=== PATIENT | male | born 1955 | race Two or more races ===

== ENCOUNTER 2025-02-07 13:00 | Emergency (ER) | payer OTHER, SELFPAY ==
[2025-02-07 13:02] VITALS: BMI 33.0
[2025-02-07 13:09] VITALS: BP 157/79; PULSE 68; RESP 16; TEMP 36.4; O2SAT 95
--- NOTE | 2025-02-07 13:42 | PC.NURSE ---
Pt was advised to come with me to registration.Pt refused and stated when will my labs be done? I advised pt that lab will be with him shortly to draw blood. Pt Stated I'm leaving there is to many people sitting around doing nothing. Pt took his Spinal fluid and left.
--- NOTE | 2025-02-07 13:43 | EDNOTE_ITS ---
ED General RME/HPI General Chief complaint: General Adult/Misc Complain Stated complaint: SENT BY [facility] FOR LAB WORK Time Seen by Provider: 02/07/25 13:27 Arrival date/time: 02/07/25 13:00 RME / HPI RME / HPI narrative: 69-year-old male patient was sent to us by neurologist for request regarding blood work. Patient's been having headache for several months, went to PCP today/neurologist and lumbar tap was done patient is here for laboratory workup. Currently patient is complaining of back pain and headache severity mild. Denies any other complaints. Patient is ambulatory Related Data Allergies Allergy/AdvReac Type Severity Reaction Status Date / Time No Known Allergies Allergy Verified 02/07/25 13:04 Review of Systems Review of Systems Narrative Review of Systems: Review of system reviewed and within normal limits except mentioned in HPI ED Exam Narrative Physical exam: VITAL SIGNS: Reviewed. GENERAL APPEARANCE: Alert and interactive, follows commands, no acute distress, HEAD AND FACE: Non-traumatic. ENT: PERRL, pink conjunctivitis, eyelid no trauma, Mucous membrane moist. NECK: Supple, nontender, no nuchal rigidity. CHEST: No tenderness, no crepitus, no paradoxical movement, no retractions. LUNGS: Clear, well ventilated, symmetric, no rales, no wheezing, no ronchi, no stridor, good breath sounds bilaterally. HEART: Regular rate, regular rhythm, no murmur, no gallops. ABDOMEN: Soft, positive bowel sounds, nondistended, no guarding, nontender, no rebound, no masses, RECTAL: Deferred. GENITAL: Deferred. NEUROLOGICAL: Gross motor function intact sensory function intact, Appropriate for age. MUSCULOSKELETAL: low back nontender, full range of motion. EXTREMITIES: Nontender, full range of motion. SKIN: Color pink, dry, no rash, no lacerations, no abrasions, no contusions. LYMPHATICS: Deferred. Course Quality Measures none Orders Category Date Time Status Angiotensin Convert Enz, CSF* Routine Lab 02/07/25 14:15 Received CSF Culture and Gram Stain Stat Lab 02/07/25 14:15 Results Cell Count w Diff, CSF Routine Lab 02/07/25 14:15 Completed Coccid Serology, CF CSF (UCD)* Routine Lab 02/07/25 14:15 Received Glucose,CSF Routine Lab 02/07/25 14:15 Completed IgG Synthesis Rate/Index, CSF* Stat Lab 02/07/25 14:15 Stop Req IgG, Serum* Stat Lab 02/07/25 14:15 Stop Req Misc Send Out* Routine Lab 02/07/25 14:15 Received Misc Send Out* Stat Lab 02/07/25 14:15 Received Myelin Basic Protein, CSF* Routine Lab 02/07/25 14:15 Received Oligoclonal Bands, CSF* Routine Lab 02/07/25 14:15 Received Protein Total,CSF Routine Lab 02/07/25 14:15 Completed VDRL, CSF Qual* Stat Lab 02/07/25 14:15 Stop Req Vital Signs Vital signs: Vital Signs Temperature 97.5 F 02/07/25 13:09 Pulse Rate 68 02/07/25 13:09 Respiratory Rate 16 02/07/25 13:09 Blood Pressure 157/79 H 02/07/25 13:09 Pulse Oximetry (%) 95 02/07/25 13:09 Oxygen Delivery Method Room Air 02/07/25 13:09 Discharge Plan Plan Patient Disposition: HOME (Self Care) Discharge Disposition comment: Stable Problem List Clinical Impression: Headache Patient/Caregiver Discharge Instructions Discharge Activity: activity as tolerated Education Materials: Self-Care for Headaches Additional Instructions: Thank you for the opportunity for serving you today. You are stable for discharged . You are advised to: Follow-up with your neurologist regarding your laboratory results Print Language: Polish Stand Alone Forms: Naida Award Info., Patient Portal Info Letter PA/MINDA Supervising Physician FELIBERTO/MINDA Supervising Physician: MD Angélica MDM Narrative MDM hospital course: Laboratory requested ordered. Patient is stable for discharge home Diagnosis Differential diagnosis: Headache status post lumbar tap Most likely dx, and/or detailed dx discussion: Headache status post lumbar tap outpatient
--- NOTE | 2025-02-07 14:05 | PC.NURSE ---
pt came back and had labs drawn per doctors orders. pt is to follow up with dr wade as directed
[2025-02-07 14:58] LABS: Misc Send Out* See Sep Rpt
[2025-02-07 15:04] LABS: Coccid Serology, CF CSF (UCD)* See Sep Rpt
[2025-02-07 15:11] LABS: CSF Cell Count Tube # Tube #2; CSF White Blood Cell 3 /cmm
[2025-02-07 15:12] LABS: CSF Color Colorless (Colorless); CSF Gram Stain Alert Gram Stain Completed; CSF Mononuclear 67 %; CSF Polynuclear WBC 33 %; CSF Red Blood Cell 1000 /cmm; CSF, Appearance Hazy (Clear)
[2025-02-07 15:14] LABS: Glucose,CSF 62 mg/dL (40-70); Protein Total,CSF 77 mg/dL (8-32)
[2025-02-13 06:47] LABS: VDRL, CSF Qual* NON-REACTIVE
[2025-02-13 11:21] LABS: IgG Index, CSF 0.37 (<0.70); IgG, CSF 7.3 mg/dL (0.8-7.7); IgG, Serum 1190 mg/dL (600-1540); Synthesis Rate IgG, CSF -11.1 mg/24 h (-9.9 TO +3.3)
[2025-02-14 07:01] LABS: Albumin, Serum 3.1 g/dL (3.6-5.1)
[2025-02-14 07:02] LABS: IgG, Serum* 1186 mg/dL (600-1540)
[2025-02-14 07:06] LABS: Angiotensin Convert Enz, CSF* <5 U/L (< OR = 15); Myelin Basic Protein, CSF* <2.0 mcg/L (< OR = 4.0); Oligoclonal Bands, CSF* ABSENT (ABSENT)
== END 2025-02-07 14:13 | disposition home or self-care (01) ==
PROVIDERS: Nurse Practitioner Family; Emergency Provider Emergency Medicine
DX: R51.9 Headache, unspecified (principal)
CPT/HCPCS: 36415; 82040; 82042; 82164; 82784; 82945; 83873; 83916; 84157; 86171; 86592; 87070; 87205; 89051; 99281